=== PATIENT | female | born 1975 | race Caucasian/White ===

== ENCOUNTER → 2016-05-04 | Outpatient (CLI) | payer BC, OTHER ==
--- NOTE | 2016-05-04 19:13 | MA ---
Screening Digital Mammogram With iCAD Analysis Clinical Indications: 40-year-old female whose maternal grandmother had breast cancer at age 60 and p aternal grandmother at age 55. The patient is currently taking control pills, and presents for routine annual mammographic screening. Technique: Standard cephalocaudal projections are obtained. Digital breast tomosynthesis was performe d in the MLO projection with reconstruction at 1.0 mm slice thickness and composite MLO views reconst ructed. This examination is processed by the iCAD computer aided detection system. Comparison Study: Bilateral digital screening mammography, dated February 12, 2015. Breast Density: Type D: Very Dense. Findings: CAD was reviewed, and is negative. There are no new masses, suspicious calcifications, or s econdary signs of malignancy seen. There has been no significant change in the appearance of either b reast. Impression: Negative mammogram. BI-RADS 1. Recommendation: Routine mammographic screening in one year as long as physical examination is negativ e in this patient with very dense breast parenchyma. [facility] will send a result letter to the patient. Negative mammography should not preclude additional workup of a clinically suspicious finding. The patient's information is entered into a reminder system with a target due date for her next mammo gram.
== END ==
LOC: FIMAGING 15:35
DX: Z12.31 Encounter for screening mammogram for malignant neoplasm of breast (principal); Z80.3 Family history of malignant neoplasm of breast; Z79.3 Long term (current) use of hormonal contraceptives
CPT/HCPCS: G0202

== ENCOUNTER → 2017-06-08 | Outpatient (CLI) | payer BC | LOC: FIMAGING 14:53 | PROVIDERS: ATTEND Obstetrics & Gynecology | DX: Z12.31 Encounter for screening mammogram for malignant neoplasm of breast (principal); Z80.3 Family history of malignant neoplasm of breast ==